=== PATIENT | male | born 1940 | race Caucasian/White ===

== ENCOUNTER → 2016-10-16 | Outpatient (CLI) | payer MEDICARE, BC ==
[~2016-10-16] MED LIST: CARDIZEM CD 18180 MG PO; CARDIZEM CD 24240 MG PO; COLACE 100100 MG/CAP PO; DULCOLAX TAB5 MG PO; FLEXERIL5 MG PO; GLUCOPHAGE XR500 M1 PO; GLUCOTROL 5M5 MG/TAB PO; LOPRESSOR100 MG PO; METFORMIN; METHYLTREXATE; PERCOCET 5/321 UDTAB PO; PREDNISONE20 MG PO; PRINIVIL20 MG PO; VICODIN 5/5001 UDTAB PO; XARELTO10 MG PO; XARELTO15 MG PO; XARELTO20 MG PO
== END ==
LOC: COL.RAD 09:19
DX: N40.0 Benign prostatic hyperplasia without lower urinary tract symptoms (principal); R97.20 Elevated prostate specific antigen [PSA]; K44.9 Diaphragmatic hernia without obstruction or gangrene; M19.011 Primary osteoarthritis, right shoulder; E04.2 Nontoxic multinodular goiter; N28.1 Cyst of kidney, acquired; N20.0 Calculus of kidney; Z85.46 Personal history of malignant neoplasm of prostate
CPT/HCPCS: A9503

== ENCOUNTER 2018-03-17 20:16 | Emergency (ER) | payer MEDICARE, BC ==
[~2018-03-17] VITALS: Ht 180.3 cm; Wt 90.9 kg
[2018-03-17 20:23] VITALS: BP 129/77; TEMP 99.1
[2018-03-17 21:53] LABS: COLLECTION METHOD CLEAN CATCH
[2018-03-17 21:59] LABS: HYALINE CAST >12 /lpf; MUCOUS Present /lpf; PH 6 (5-8); SQUAMOUS EPITHELIAL None Seen /hpf; URINE APPEARANCE Clear; URINE BACTERIA None Seen /hpf; URINE BILIRUBIN Negative (NEGATIVE); URINE BLOOD Negative (NEGATIVE); URINE COLOR Yellow; URINE GLUCOSE Negative (NEGATIVE); URINE KETONE Negative (NEGATIVE); URINE LEUKOCYTE ESTERASE Trace (NEGATIVE); URINE NITRATE Negative (NEGATIVE); URINE PROTEIN(semi-quant) 2+ (NEGATIVE); URINE RBC 0-2 /hpf; URINE UROBILINOGEN >=4.0 mg/dL (NEGATIVE)
[2018-03-17 22:19] LABS: BASO % 0.3 % (0.0-2.0); EOS # 0.1 (0.0-0.7); EOS % 0.4 % (0-4.0); GRAN # 9.1 (1.4-6.5); GRAN % 79.8 % (42.2-75.2); HEMATOCRIT 43.2 % (42.0-52.0); HEMOGLOBIN 14.3 g/dl (13.5-18.0); LYMPH # 1.2 (1.2-3.4); LYMPH % 10.1 % (20.0-51.0); MEAN CELL VOLUME 95 fl (80.0-100.0); MEAN CORPUSCULAR HEMOGLOBIN 32 pg (27.0-31.0); MEAN CORPUSCULAR HGB CONC 33 g/dl (33.0-37.0); MONO % 8.9 % (1.7-9.3); PLATELET COUNT 268 K/mm3 (130-400); RED BLOOD COUNT 4.53 M/mm3 (4.20-5.60); REDCELL DISTRIBUTION WIDTH-CV 14.5 % (11.5-14.5)
[2018-03-17 22:24] LABS: INR 1.6 (0.8-3.0); PROTHROMBIN TIME 18.5 SECONDS (9.7-12.8)
[2018-03-17 22:27] LABS: PARTIAL THROMBOPLASTIN TIME 42.1 SECONDS (26.0-37.0)
[2018-03-17 22:29] LABS: ALBUMIN 3.9 gm/dL (3.5-5.0); BILIRUBIN,TOTAL 1.4 mg/dL (0.0-1.0); CREATININE, serum 1.49 mg/dL (0.66-1.25); POTASSIUM 3.8 mmol/L (3.4-5.0); TOTAL PROTEIN 6.9 gm/dL (6.4-8.2)
[2018-03-18 01:20] VITALS: PULSE 93
== END 2018-03-18 01:25 | disposition short-term general hospital (02) ==
LOC: COL.ER 20:16
PROVIDERS: Emergency Medicine
DX: S22.41XA Multiple fractures of ribs, right side, initial encounter for closed fracture (principal); I48.91 Unspecified atrial fibrillation; S36.113A Laceration of liver, unspecified degree, initial encounter; J94.2 Hemothorax; Z79.84 Long term (current) use of oral hypoglycemic drugs; Z79.01 Long term (current) use of anticoagulants; V84.9XXA Unspecified occupant of special agricultural vehicle injured in nontraffic accident, initial encounter; W22.8XXA Striking against or struck by other objects, initial encounter; Y92.009 Unspecified place in unspecified non-institutional (private) residence as the place of occurrence of the external cause
CPT/HCPCS: J2270; J2405; J3010; J7030; Q9967

== ENCOUNTER 2018-05-22 07:51 | Day surgery (SDC) | payer MEDICARE, BC ==
[2018-05-22] VITALS (9 sets, daily range): BP systolic 136–163; BP diastolic 79–106; PULSE 67–86; TEMP 97.4–97.7
[~2018-05-22] VITALS: Ht 180.3 cm; Wt 90.0 kg
[2018-05-22 08:44] LABS: INR 1.9 (0.8-3.0); PROTHROMBIN TIME 22.1 SECONDS (9.7-12.8)
[2018-05-22] MEDS ORDERED: CARDIZEM 60MG T60 MG PO (08:59)
[2018-05-22] MEDS ORDERED: TRULICITY1.5 MG/0.5 SQ (09:03)
[2018-05-22] MEDS ORDERED: HCTZ 25MG TAB25 MG PO (09:04)
[2018-05-22] MEDS ORDERED: XALATAN EYE DROPS OU (09:05)
[2018-05-22] MEDS ORDERED: COZAAR 50MG50 MG/TAB PO (09:06)
[2018-05-22] MEDS ORDERED: ACTOS30 MG PO (09:07)
[2018-05-22] MEDS ORDERED: BETAPACE 80MG80 MG PO (09:09)
[2018-05-22] MEDS ORDERED: DEPO-TESTOS100 MG/ML IM (09:11)
[2018-05-22 09:26] LABS: THYROID STIMULATING HORMONE 2.08 uIU/mL (0.465-4.680)
[2018-05-22 09:47] LABS: POTASSIUM 3.7 mmol/L (3.4-5.0)
== END 2018-05-22 14:00 | disposition home or self-care (01) ==
LOC: COL.CAR 07:51
PROVIDERS: Internal Medicine Cardiovascular Disease
DX: I48.0 Paroxysmal atrial fibrillation (principal); I10 Essential (primary) hypertension; E78.5 Hyperlipidemia, unspecified; E83.42 Hypomagnesemia; B36.9 Superficial mycosis, unspecified; E23.0 Hypopituitarism; I08.1 Rheumatic disorders of both mitral and tricuspid valves; Z79.01 Long term (current) use of anticoagulants; Z85.46 Personal history of malignant neoplasm of prostate; Z87.81 Personal history of (healed) traumatic fracture; Z82.49 Family history of ischemic heart disease and other diseases of the circulatory system; Z80.3 Family history of malignant neoplasm of breast
CPT/HCPCS: J2250; J3010; J7030

== ENCOUNTER 2018-10-14 10:30 | Inpatient (IN) | payer MEDICARE, BC ==
[~2018-10-14] VITALS: Ht 180.3 cm; Wt 89.5 kg
[~2018-10-14 10:30] MED LIST changes: +ACTOS30 MG PO; +BETAPACE 80MG80 MG PO; +CARDIZEM 60MG T60 MG PO; +COZAAR 50MG50 MG/TAB PO; +DEPO-TESTOS100 MG/ML IM; +HCTZ 25MG TAB25 MG PO; +TRULICITY1.5 MG/0.5 SQ; +XALATAN EYE DROPS OU
[2018-10-14 11:10] LABS: HEMATOCRIT 48.9 % (42.0-52.0); HEMOGLOBIN 16.6 g/dl (13.5-18.0); MEAN CELL VOLUME 92 fl (80.0-100.0); MEAN CORPUSCULAR HEMOGLOBIN 31 pg (27.0-31.0); MEAN CORPUSCULAR HGB CONC 34 g/dl (33.0-37.0); PLATELET COUNT 206 K/mm3 (130-400); REDCELL DISTRIBUTION WIDTH-CV 14.4 % (11.5-14.5)
[2018-10-14 11:23] LABS: ALBUMIN 4.2 gm/dL (3.5-5.0); BILIRUBIN,TOTAL 2.6 mg/dL (0.0-1.0); C-REACTIVE PROTEIN 2.9 mg/dL (0.0-0.9); CALCIUM 9.1 mg/dL (8.4-10.2); CREATININE, serum 1.22 mg/dL (0.66-1.25); POTASSIUM 4.1 mmol/L (3.4-5.0); TOTAL PROTEIN 7.9 gm/dL (6.4-8.2)
[2018-10-14 11:27] LABS: LYMPHOCYTE 3 % (20.0-51.0); NEUTROPHILS 92 % (42.0-75.2); PLATELET ESTIMATE NORMAL (NORMAL)
[2018-10-14 12:14] LABS: INR 1.2 (0.8-3.0); PROTHROMBIN TIME 13.9 SECONDS (9.7-12.8)
[2018-10-14 13:18] LABS: SYNOVIAL FL. MONONUCLEAR 10.2 % (0-75); SYNOVIAL FLUID RBC 128000 /mm3 (0-0); SYNOVIAL FLUID WBC 221490 /mm3 (200-600)
[2018-10-14 13:41] LABS: SYNOVIAL FLUID APPEARANCE TURBID; SYNOVIAL FLUID COLOR BROWN
--- NOTE | 2018-10-14 14:45 | NUR ---
PATIENT ARRIVED TO ROOM 349 VIA WHEELCHAIR FROM ER. PATIENT SETTELED INTO ROOM.
[2018-10-14 15:11] VITALS: BP 141/82; PULSE 97; TEMP 98.1
[2018-10-14 15:30] VITALS: BP 141/82; PULSE 97; TEMP 98.1
--- NOTE | 2018-10-14 17:07 | NUR ---
PATIENT ASSESSMENT COMPLETE. SEE ASSESSMENT B. PATIENT A&O. VSS. BANDAID TO LEFT KNEE IS CD&I. BJ FRENCH AND SCD'S APPLIED TO BLE. CALL LIGHT WITHIN REACH. PATIENT DENIES ANY NEEDS AT THIS TIME.
[2018-10-14 18:19] LABS: PH 5 (5-8); SQUAMOUS EPITHELIAL None Seen /hpf; URINE APPEARANCE Clear; URINE BACTERIA None Seen /hpf; URINE BILIRUBIN Negative (NEGATIVE); URINE BLOOD 1+ (NEGATIVE); URINE COLOR Yellow; URINE GLUCOSE 3+ (NEGATIVE); URINE KETONE Trace (NEGATIVE); URINE LEUKOCYTE ESTERASE Negative (NEGATIVE); URINE NITRATE Negative (NEGATIVE); URINE PROTEIN(semi-quant) Negative (NEGATIVE); URINE RBC 0-2 /hpf; URINE WBC 0-2 /hpf
[2018-10-14 18:37] LABS: COLLECTION METHOD CLEAN CATCH
--- NOTE | 2018-10-14 19:17 | NUR ---
REPORT GIVEN TO CONNOR DIA.
[2018-10-14 20:42] VITALS: BP 140/83; PULSE 78; TEMP 98.2
--- NOTE | 2018-10-14 21:00 | NUR ---
Patient resting in bed, eyes closed. Awakens to name. Is alert and oriented x4. Has SL to right AC without redness or swelling. Has bilateral thigh high BJ hose on with SCD's bilaterally. Has swelling to left knee, bandaid intact to puncture site. Denies pain at this time. Takes HS meds without problem.
[2018-10-15 03:44] VITALS: BP 122/70; PULSE 91; TEMP 98.6
--- NOTE | 2018-10-15 05:00 | NUR ---
Assisted up in the bed, moderate discomfort. Elevated leg and applied new ice pack this AM. Uses urinal without problem.
[2018-10-15 07:50] VITALS: BP 156/69; PULSE 92; TEMP 97.8
--- NOTE | 2018-10-15 09:01 | NUR ---
CARMEN and SW student attended clinical rounds and met with the patient to discuss discharge plan. The patient [place] alone [place] of the [facility]. He reports that his brother lives in a house close by. The patient does not use any DME and reports independence with ADLs prior to hospitalization. The patient's PCP is Dr. Benoit Nguyen and he receives his medications at the [facility] in [place] or the [facility] [place], [place]. The patient reports no difficulties obtaining his medications. The patient does not have a DPOA-HC completed and was not interested in completing one at this time. CARMEN to continue to follow.
[2018-10-15 09:09] LABS: HEMATOCRIT 44.5 % (42.0-52.0); HEMOGLOBIN 15.1 g/dl (13.5-18.0); MEAN CELL VOLUME 93 fl (80.0-100.0); MEAN CORPUSCULAR HEMOGLOBIN 31 pg (27.0-31.0); MEAN CORPUSCULAR HGB CONC 34 g/dl (33.0-37.0); MEAN PLATELET VOLUME 9.1 fl (7.4-10.4); PLATELET COUNT 165 K/mm3 (130-400); RED BLOOD COUNT 4.81 M/mm3 (4.20-5.60); REDCELL DISTRIBUTION WIDTH-CV 14.7 % (11.5-14.5)
[2018-10-15 09:11] LABS: CALCIUM 8.6 mg/dL (8.4-10.2); CREATININE, serum 1.17 mg/dL (0.66-1.25); POTASSIUM 3.5 mmol/L (3.4-5.0)
[2018-10-15 09:24] LABS: BAND 17 % (0-10); NEUTROPHILS 67 % (42.0-75.2)
[2018-10-15 09:25] LABS: LYMPHOCYTE 10 % (20.0-51.0); PLATELET ESTIMATE NORMAL (NORMAL)
--- NOTE | 2018-10-15 10:29 | NUR ---
Initial visit; Patient thanked Irrigator Gravity Flow for offering God's blessings.
--- NOTE | 2018-10-15 10:54 | NUR ---
Patient alert and oriented, answers questions appropriately. See assessment. LLE with 1+ edema noted, pulses palpable, no numbness or tingling noted. Pain to LLE with movement or weight bearing, ice pack in place. No other c/o at this time.
[2018-10-15 11:53] VITALS: BP 123/63; PULSE 81; TEMP 98.2
[2018-10-15 16:27] VITALS: BP 178/81; PULSE 95; TEMP 99.4
--- NOTE | 2018-10-15 19:24 | NUR ---
Patient in bed, asks for pain med. Medicated with [place] 5/325mg 1 tab po at this time. Has ice pack to left knee. Minimal activity noted. SCD's and thigh high BJ hose on. Voiding per urinal. IV site to right AC without redness or swelling.
--- NOTE | 2018-10-15 21:20 | NUR ---
Patient in bed, has minimal movement in bed since previous night. Assisted patient with partial bath, linen change and repositioning. Stressed importance of moving to prevent skin breakdown, patient verbalized understanding. Laying on left side, IV antibiotic infusing without problem.
--- NOTE | 2018-10-15 23:39 | NUR ---
Patient repositioned to back, moderate pain with movement, rating 7/10 to left knee. Medicated with [place] 5/325mg 2 tabs at this time. Ice pack and elevation of left leg provided. Patient brushed his teeth at this time.
--- NOTE | 2018-10-16 00:05 | NUR ---
Limiting oral intake until decision made if he is having I/D of left knee today. Patient verbalized understanding.
[2018-10-16 03:31] VITALS: BP 136/78; PULSE 81; TEMP 98.5
--- NOTE | 2018-10-16 06:00 | NUR ---
Dr Davila here, ordered PT for patient. No surgery and patient can eat as normal.
[2018-10-16 07:48] LABS: BASO % 0.2 % (0.0-2.0); EOS % 0.2 % (0-4.0); GRAN # 12.4 (1.4-6.5); HEMATOCRIT 43.6 % (42.0-52.0); HEMOGLOBIN 14.3 g/dl (13.5-18.0); LYMPH % 6.6 % (20.0-51.0); MEAN CELL VOLUME 94 fl (80.0-100.0); MEAN CORPUSCULAR HEMOGLOBIN 31 pg (27.0-31.0); MEAN CORPUSCULAR HGB CONC 33 g/dl (33.0-37.0); MEAN PLATELET VOLUME 9.4 fl (7.4-10.4); MONO # 1.3 (0.1-0.6); MONO % 8.5 % (1.7-9.3); PLATELET COUNT 194 K/mm3 (130-400); RED BLOOD COUNT 4.64 M/mm3 (4.20-5.60); REDCELL DISTRIBUTION WIDTH-CV 14.7 % (11.5-14.5)
[2018-10-16 08:00] VITALS: BP 138/71; PULSE 86; TEMP 98.6
[2018-10-16 08:01] LABS: CALCIUM 8.5 mg/dL (8.4-10.2); CREATININE, serum 1.21 mg/dL (0.66-1.25); POTASSIUM 3.5 mmol/L (3.4-5.0)
[2018-10-16 08:36] LABS: C-REACTIVE PROTEIN 33.4 mg/dL (0.0-0.9)
[2018-10-16 09:18] LABS: ERYTHROCYTE SEDIMENTATION RATE 54 mm/hr (0-30)
--- NOTE | 2018-10-16 11:21 | NUR ---
Pt. is currently sitting in his chair receiving Vancomycin IV. IV is located in right forearm. No redness/infiltration noted. Resident rated pain at a 3 while sitting and a 10 when standing while he moved to chair earlier. Currently has ice on his left knee, and a [place] was given at 1055. Will get him up later to walk, call light and water within reach.
[2018-10-16 12:00] VITALS: BP 140/60; PULSE 74; TEMP 99.4
--- NOTE | 2018-10-16 13:45 | NUR ---
Pt. sitting in chair watching tv. just finished lunch. Denies left knee pain at this time. Call light and water within reach.
--- NOTE | 2018-10-16 14:50 | NUR ---
Patient alert and oriented, answers questions appropriately. See assessment. LLE ROM WNL, pulses palpable, neuros intact. No c/o numbness or tingling to LLE. FWB. No c/o at this time.
--- NOTE | 2018-10-16 15:06 | NUR ---
CARMEN and CARMEN student met with the patient to discuss physical therapies recommendation of post-acute rehab and the need for IV antibiotics. The patient reports that he would be agreeable to post-acute rehab. CARMEN discussed options and presented and explained the patient choice form. The patient preferred either [facility] or [facility]. He did not have a first or second preference at this time. Patient choice form signed by the patient and he was provided a copy. CARMEN has contacted and faxed a referral to both facilities. CARMEN awaiting their screening. The patient also informed CARMEN that he has [facility] as a secondary, but does not have his insurance card on him. He states that his PCP's office should have that information. CARMEN then contacted Dr. Nguyen's office and obtained his insurance number. CARMEN then provided the information to financial counselor, Arleth. CARMEN to continue to follow.
[2018-10-16 16:00] VITALS: BP 120/61; PULSE 84; TEMP 99.6
--- NOTE | 2018-10-16 16:37 | NUR ---
Liliana, at [facility], reports that they can accept the patient for a skilled stay. SW to inform the patient and continue to follow.
[2018-10-16 19:06] VITALS: BP 152/71; PULSE 80; TEMP 99.2
--- NOTE | 2018-10-16 21:30 | NUR ---
Patient in bed, is alert and oriented x4. Has SL to right AC without redness or swelling. Still reporting significant pain to left knee with movement of the left leg. Assisted with oral cares. Voiding per urinal.
--- NOTE | 2018-10-16 22:30 | NUR ---
Lab in to draw blood cultures at this time, new order from ID doctor.
--- NOTE | 2018-10-17 00:19 | NUR ---
Medicated with [place] 5/325mg 2 tabs p.o. at this time for left knee pain 03/04.
[2018-10-17 00:23] VITALS: BP 127/59; PULSE 80; TEMP 98.8
[2018-10-17 05:30] VITALS: BP 123/65; PULSE 71; TEMP 98.9
[2018-10-17 05:31] LABS: HEMATOCRIT 40.5 % (42.0-52.0); HEMOGLOBIN 13.5 g/dl (13.5-18.0); MEAN CELL VOLUME 93 fl (80.0-100.0); MEAN CORPUSCULAR HEMOGLOBIN 31 pg (27.0-31.0); MEAN CORPUSCULAR HGB CONC 33 g/dl (33.0-37.0); MEAN PLATELET VOLUME 9.5 fl (7.4-10.4); PLATELET COUNT 215 K/mm3 (130-400); RED BLOOD COUNT 4.36 M/mm3 (4.20-5.60); REDCELL DISTRIBUTION WIDTH-CV 14.6 % (11.5-14.5)
[2018-10-17 05:40] LABS: CALCIUM 8.7 mg/dL (8.4-10.2); CREATININE, serum 1.43 mg/dL (0.66-1.25); POTASSIUM 3.5 mmol/L (3.4-5.0)
--- NOTE | 2018-10-17 06:00 | NUR ---
Patient awake, denies need for pain meds at this time.
[2018-10-17 06:44] LABS: BASO % 0.2 % (0.0-2.0); EOS # 0.1 (0.0-0.7); EOS % 0.6 % (0-4.0); GRAN # 9.9 (1.4-6.5); LYMPH # 1.3 (1.2-3.4); LYMPH % 10.3 % (20.0-51.0); MONO # 1.2 (0.1-0.6); MONO % 9.3 % (1.7-9.3)
--- NOTE | 2018-10-17 07:15 | NUR ---
Report received from CONNOR Story. Pt in bed resting, awake and alert, student nurse at bedside, will continue to monitor.
[2018-10-17 08:00] VITALS: BP 127/75; PULSE 72; TEMP 98.1
--- NOTE | 2018-10-17 09:42 | NUR ---
CARMEN and SW student met with the patient to inform of [facility] being able to accept. The patient reports that [facility] is his first preference now and that he would like to transfer there upon discharge. SW updated Liliana at [facility]. SW to update Pan at [facility] and continue to follow.
--- NOTE | 2018-10-17 09:55 | NUR ---
Assessment charted. Pt in bed resting, c/o pain to L knee whenever palpated or moved but at rest denies pain. Knee is warm and reddened and slightly swollen compared to other knee. Denies needs, student nurse at bedside. Called IAME Giles for hospitalist and PICC will probably be placed Saturday when blood culture have resulted, pt will remain in hospital until that time.
--- NOTE | 2018-10-17 09:57 | NUR ---
Resident is currently resting in bed, denies any pain at this time. His left knee becomes painful with movement and ambulation. Does have slight swelling in the left knee. Vitals and Assessment done earlier this morning. Call light and water are within reach.
[2018-10-17 12:00] VITALS: BP 108/54; PULSE 57; TEMP 98.9
--- NOTE | 2018-10-17 13:03 | NUR ---
Initial visit; Patient thanked Manager Qa for looking in on him and offering God's blessings. Jose is still experiencing some pain but is in hopes with physical therapy it will feel better today.
--- NOTE | 2018-10-17 13:24 | NUR ---
CARMEN contacted and faxed updates to Liliana at [facility]. SW to continue to follow.
--- NOTE | 2018-10-17 13:49 | NUR ---
Pt. ate well for lunch and then got up to ambulate. Pt. just received a shower and was shaved. New gown and socks were put on along with new bedding. Pt. has pain with ambulation but when at rest he says it feels okay. Water and call light within reach.
[2018-10-17 15:23] VITALS: BP 131/61; PULSE 76; TEMP 99.1
--- NOTE | 2018-10-17 18:14 | NUR ---
Pt doing well. Feels good but tired after walking to shower, taking shower and back in bed. Rested well this afternoon. Changed IV site due to outdated. Denies needs. Will give bedside shift erport to nighthsift nurse who will resume care.
[2018-10-17 20:26] VITALS: BP 128/63; PULSE 112; TEMP 99.8
--- NOTE | 2018-10-17 21:45 | NUR ---
Shift assessment complete. Patient resting in bed, left knee elevated. Patient c/o 4/10 pain in left knee, prn pain medication given. SCD's applied to BLE. Denies further needs, will continue to assess.
[2018-10-18] VITALS (8 sets, daily range): BP systolic 109–157; BP diastolic 55–93; PULSE 42–122; TEMP 98.1–99.9
--- NOTE | 2018-10-18 04:31 | NUR ---
Patient resting in bed. C/o pain in left knee. Prn pain medication given. Will reassess.
[2018-10-18 07:19] LABS: BASO % 0.3 % (0.0-2.0); EOS # 0.1 (0.0-0.7); EOS % 0.6 % (0-4.0); GRAN # 8.5 (1.4-6.5); HEMATOCRIT 39.5 % (42.0-52.0); LYMPH # 1.2 (1.2-3.4); LYMPH % 10.7 % (20.0-51.0); MEAN CELL VOLUME 94 fl (80.0-100.0); MEAN CORPUSCULAR HEMOGLOBIN 31 pg (27.0-31.0); MEAN CORPUSCULAR HGB CONC 33 g/dl (33.0-37.0); MEAN PLATELET VOLUME 9.2 fl (7.4-10.4); MONO # 1.4 (0.1-0.6); MONO % 12.3 % (1.7-9.3); PLATELET COUNT 233 K/mm3 (130-400); REDCELL DISTRIBUTION WIDTH-CV 14.6 % (11.5-14.5)
[2018-10-18 07:27] LABS: CALCIUM 8.7 mg/dL (8.4-10.2); CREATININE, serum 1.33 mg/dL (0.66-1.25); POTASSIUM 3.7 mmol/L (3.4-5.0)
--- NOTE | 2018-10-18 13:34 | NUR ---
CARMEN faxed a patient updated to Liliana at [facility].
--- NOTE | 2018-10-18 18:45 | NUR ---
Left knee pain improved with prn [place]. CMS intact. Transfers with walker and two staff assist. Afebrile. Complained of increased knee pain after physical therapy. Informed NPO after midnight.
[2018-10-19] VITALS (13 sets, daily range): BP systolic 124–182; BP diastolic 58–93; PULSE 68–86; TEMP 97.9–99
--- NOTE | 2018-10-19 04:56 | NUR ---
Patient has rested well overnight. Patient did complain of pain in his left knee at the beginning of the shift, administered PRN pain medication per order. Left knee is edemetous upon inspection. Patient had a slightly elevated temprature at HS, but reports that the pain medication did help his knee. Patient has continued to deny pain or further needs overnight, call light within reach.
--- NOTE | 2018-10-19 10:15 | NUR ---
Dr. Damon talked with patient and daughter. NPO. Rates left knee pain as 3/10 at rest. To surgery per bed with OR staff.
--- NOTE | 2018-10-19 12:20 | NUR ---
Received patient from PACU per bed. Alert. Left knee dressing CDI. Hemovac to compression with minimal bloody drainage in tubing. Denies need for pain medication. VSS.
--- NOTE | 2018-10-19 14:10 | NUR ---
plate worker spoke with Liliana at [facility] regarding no orders for the patient to discharge this day and social welfare clerk faxed medical information updates to Liliana at [phone].
--- NOTE | 2018-10-19 15:00 | NUR ---
Medicated with [place] for c/o left knee pain.
--- NOTE | 2018-10-19 18:30 | NUR ---
Denied pain. Left knee dressing CDI. No measurable drainage in hemovac. Ice pack to knee. VSS.
--- NOTE | 2018-10-19 19:36 | NUR ---
Pt resting with HOB elevated. No distress noted. Report received from Almaz RYAN. IV fluids infusing to LFA. Hemovac to L knee compressed. Some bloody drainage in tubing, but none in chamber. Pt states pain isn't "that bad". States it is much better since the procedure. Lungs clear to auscultation. BS+. BJ hose to L leg. Will continue to monitor.
--- NOTE | 2018-10-19 21:00 | NUR ---
[employer] contacted about pts elevated CBG >400. No orders received.
[2018-10-20 03:23] VITALS: BP 132/66; PULSE 67; TEMP 98.4
--- NOTE | 2018-10-20 06:15 | NUR ---
Pt awake this AM, but slept throughout the night. No complaints of pain currently. No drainage noted in Hemovac canister. Hot water x2 brought to patient. Pt has still not had BM, but states he "wants to try today".
[2018-10-20 07:08] LABS: HEMATOCRIT 39.3 % (42.0-52.0); HEMOGLOBIN 12.8 g/dl (13.5-18.0); MEAN CELL VOLUME 95 fl (80.0-100.0); MEAN CORPUSCULAR HEMOGLOBIN 31 pg (27.0-31.0); MEAN CORPUSCULAR HGB CONC 33 g/dl (33.0-37.0); MEAN PLATELET VOLUME 9.6 fl (7.4-10.4); RED BLOOD COUNT 4.14 M/mm3 (4.20-5.60); REDCELL DISTRIBUTION WIDTH-CV 14.5 % (11.5-14.5)
[2018-10-20 07:18] LABS: CREATININE, serum 1.23 mg/dL (0.66-1.25); POTASSIUM 4.5 mmol/L (3.4-5.0)
[2018-10-20 07:24] LABS: PLATELET COUNT 340 K/mm3 (130-400)
[2018-10-20 07:26] VITALS: BP 128/64; PULSE 73; TEMP 98.8
[2018-10-20 11:13] LABS: BAND 4 % (0-10); LYMPHOCYTE 7 % (20.0-51.0); METAMYELOCYTE 1 % (0-0); NEUTROPHILS 81 % (42.0-75.2)
[2018-10-20 11:14] LABS: PLATELET ESTIMATE NORMAL (NORMAL)
--- NOTE | 2018-10-20 11:16 | NUR ---
Patient alert and oriented, answers questions appropriately. See assessment. LLE with AMANDA/dressing clean, dry and intact. Pulses palpable to LLE, neuros intact. FWB BLE. No c/o at this time.
[2018-10-20 12:46] VITALS: BP 150/68; PULSE 73; TEMP 98.7
[2018-10-20 15:59] VITALS: BP 124/56; PULSE 74; TEMP 98.7
[2018-10-20 20:45] VITALS: BP 122/56; PULSE 72; TEMP 98.6
--- NOTE | 2018-10-20 21:30 | NUR ---
Patient laying in bed. Reports pain to left knee continues, describes as a constant aching. Has surgical dressing including fabiola wrap from thigh to foot on the left, hemovac compressed. Patient offers his concerns of not getting better and thinks he may want to go to [facility] in [place]. Encouraged patient to talk with his doctors in the morning about his concerns. SCD's on bilateral lower legs. Elevated left leg on a pillow, pt does not want the ice pack on. Has a PICC line to the left arm. Takes HS meds, including stool softners, reports last BM was 10/19/18.
--- NOTE | 2018-10-20 23:45 | NUR ---
Patient complains of pain 8/10 to left knee, constant aching. Medicated with Lortab 7.5mg 2 tabs po at this time. Patient ready for bed.
[2018-10-21 00:24] VITALS: BP 132/66; PULSE 84; TEMP 98.5
--- NOTE | 2018-10-21 00:27 | NUR ---
Received report from CONNOR Story.
[2018-10-21 05:53] VITALS: BP 135/86; PULSE 75; TEMP 98.5
[2018-10-21 06:04] LABS: HEMOGLOBIN 11.5 g/dl (13.5-18.0); MEAN CELL VOLUME 94 fl (80.0-100.0); MEAN CORPUSCULAR HEMOGLOBIN 31 pg (27.0-31.0); MEAN CORPUSCULAR HGB CONC 32 g/dl (33.0-37.0); MEAN PLATELET VOLUME 9.3 fl (7.4-10.4); PLATELET COUNT 364 K/mm3 (130-400); RED BLOOD COUNT 3.76 M/mm3 (4.20-5.60); REDCELL DISTRIBUTION WIDTH-CV 14.6 % (11.5-14.5)
--- NOTE | 2018-10-21 06:05 | NUR ---
Patient has rested well through the night. VSS, on room air. [place] given for pain control. Christopher wrap dressing to left foot to thigh remains CDI. Hemovac to left knee with a total of 30 ml of bloody output this shift. PICC to left upper arm flushes well with good blood return, being used intermittently for antibiotics. Patient does voice frustration with being here a week already and he feels he's not getting any better. Encouraged to voice his concerns with the medical staff who will be rounding this morning. Voices no other concerns or needs.
[2018-10-21 06:06] LABS: HEMATOCRIT 35.5 % (42.0-52.0)
[2018-10-21 06:18] LABS: CALCIUM 8.1 mg/dL (8.4-10.2); CREATININE, serum 1.11 mg/dL (0.66-1.25); POTASSIUM 3.9 mmol/L (3.4-5.0)
--- NOTE | 2018-10-21 07:00 | NUR ---
Reported on to primary nurse Maryjo RYAN.
[2018-10-21 07:20] VITALS: BP 142/75; PULSE 76; TEMP 98.3
[2018-10-21 07:27] LABS: BAND 1 % (0-10); EOSINOPHIL 1 % (0-4); LYMPHOCYTE 16 % (20.0-51.0); NEUTROPHILS 72 % (42.0-75.2)
[2018-10-21 07:28] LABS: HYPOCHROMIA 1+
[2018-10-21 07:29] LABS: POLYCHROMASIA 1+
--- NOTE | 2018-10-21 07:30 | NUR ---
Patient alert in bed. Reports his knee has minimal pain at this time 10/05. Christopher wrap is on left leg. SCD's on bilateral lower legs. Hemovac intact, dark red drainage. PICC line in left upper arm, no redness above or below christopher bandage.
--- NOTE | 2018-10-21 08:17 | NUR ---
Patient resting in bed. Breakfast ordered. He is rating his pain 3/10. Pain managed after given pain medication this am by prior nurse. Patient reports pain to Left knee elevated with movement. He is dreading therapy this am. His Left knee dressing intact. Hemovac to compression. Breakfast ordered-he denies nausea. Student nurse working with patient this am. Will continue to [facility]
--- NOTE | 2018-10-21 09:33 | NUR ---
CARMEN attended clinical rounds. Patient isael likley discharge tomorrow. is waiting for ortho to clear patient. CARMEN informed Cesia at [facility] and will fax updates.
--- NOTE | 2018-10-21 10:32 | NUR ---
Patient sitting up in the chair. He worked with therapy & did fairly well. Dr.Hodges moya, he will see patient this afternoon.
[2018-10-21 11:34] VITALS: BP 132/77; PULSE 74; TEMP 98
--- NOTE | 2018-10-21 12:09 | NUR ---
Reported off to primary nurse Maryjo RYAN.
--- NOTE | 2018-10-21 13:09 | NUR ---
Patient resting in bed. rounded. Verified Xarelto to be resumed & orders to DC hemovac. Patient tolerated hemovac removal without difficulty. Gauze dressing applied. and bandaids applied to 2 other sites with sutures. Bj hose to LLE. Removed BJ hose from RLE. Scds Ble. Patient ready for [place] for increased pain to L.knee. Applesauce with pain medication, he is not ready for lunch at this time. Overall he reports feeling better than previous day. Elliot falcon.
--- NOTE | 2018-10-21 13:45 | NUR ---
Spoke to patients daughter all questions answered. Patient refused to work with therapy. He had a late lunch & tolerated well.
[2018-10-21] MEDS ORDERED: ULTRAM 50MG TAB50 MG PO (14:01)
[2018-10-21] MEDS ORDERED: NORCO 325 MG-7.1 TAB PO (14:01)
[2018-10-21 16:24] VITALS: BP 148/75; PULSE 69; TEMP 98.6
--- NOTE | 2018-10-21 19:30 | NUR ---
Patient sitting up in bed. Visiting on the phone. Iv antibioitcs as ordered to [facility] this afternoon. L.knee bandaids remain intact. Prior hemovac site gauze dressing with shadowing noted. Nicola on. Vss on room air. Report to night nurse Juju
--- NOTE | 2018-10-21 19:40 | NUR ---
Pt resting with HOB elevated. On phone with family member. Pt upset that the infectious disease doctor is unable to come see him in the hospital and expresses desire to leave in the AM and transfer to [facility] for care. Pt does not believe that his infection is improving. Lungs clear. BS+. Pt denies nausea or vomiting. Pt states pain is "excruitating" overall, but tolerable at this time. Requesting pain medication when he can have it. Bandiads x2 and guaze to L knee at hemovac removal site. Clean, dry and intact. BJ hose to L leg. SCDs bilaterally. Will continue to monitor.
[2018-10-21 19:47] VITALS: BP 153/79; PULSE 77; TEMP 98.3
[2018-10-22 00:05] VITALS: BP 134/76; PULSE 66; TEMP 98.7
[2018-10-22 03:49] VITALS: BP 156/78; PULSE 75; TEMP 98.2
--- NOTE | 2018-10-22 07:00 | NUR ---
Report given to Lizbet RYAN. Pt continues to express request to tx to [facility]. Pt rested throughout the night. Pain well controlled.
[2018-10-22 07:20] LABS: HEMOGLOBIN 11.7 g/dl (13.5-18.0); MEAN CELL VOLUME 95 fl (80.0-100.0); MEAN CORPUSCULAR HEMOGLOBIN 30 pg (27.0-31.0); MEAN CORPUSCULAR HGB CONC 32 g/dl (33.0-37.0); MEAN PLATELET VOLUME 9.1 fl (7.4-10.4); PLATELET COUNT 396 K/mm3 (130-400); RED BLOOD COUNT 3.86 M/mm3 (4.20-5.60); REDCELL DISTRIBUTION WIDTH-CV 14.6 % (11.5-14.5)
[2018-10-22 07:24] LABS: HEMATOCRIT 36.8 % (42.0-52.0)
[2018-10-22 07:32] LABS: CREATININE, serum 1.03 mg/dL (0.66-1.25); POTASSIUM 4.1 mmol/L (3.4-5.0)
[2018-10-22 07:54] VITALS: BP 154/82; PULSE 82; TEMP 98.5
[2018-10-22 08:36] LABS: BAND 5 % (0-10); EOSINOPHIL 4 % (0-4); LYMPHOCYTE 26 % (20.0-51.0); METAMYELOCYTE 1 % (0-0); NEUTROPHILS 58 % (42.0-75.2)
[2018-10-22 08:37] LABS: PLATELET ESTIMATE NORMAL (NORMAL)
--- NOTE | 2018-10-22 10:00 | NUR ---
SW attended clinical rounds. Patient reports a lot of pain when working with PT. Patient will likley discharge to [facility] tomorrow.
--- NOTE | 2018-10-22 10:15 | NUR ---
Patient alert and oriented, answers questions appropriately. See assessment. LLE with 1+ edema noted to knee, previous drain site with no issues noted. LLE pulses palpable, neuros intact. No redness or extra warmth noted to LLE knee. Reports pain 1/10 to LLE, states increases with movement and weight bearing. AROM to LLE with no visible signs of pain noted. Patient states he would like to transfer to [facility] or [facility]. Explained to patient that there is a possibility neither [facility] or [facility] would accept transfer as patients condition is improving. Patient adamant that he be transferred to [facility] as he feels the ID doctor at is not appropriate because he has never been here to see him. Explained to patient that ID doctor is updated daily and has access to all records. Patient continues to be adamant about transfer. Dr Gauthier notified of patient concerns.
--- NOTE | 2018-10-22 10:35 | NUR ---
Dr Gauthier here to see patient.
--- NOTE | 2018-10-22 11:30 | NUR ---
Patient refuses PT per TONE REGULATOR report. Inquired from patient as to why he refuses therapy. Patients brother present in room. Patient states "I'm not doing therapy until I get a second opinion at [facility]." Reinterated to patient Dr Carmen' conversation with patient this morning about the likelihood of a higher level of care hospital accepting patient. Patients brother becomes irate and moves toward staff, stating "He needs a first opinion. Not a second opinion. That ID doctor here is not a first opinion because he's never seen him." Explained to patient and brother that the ID doctor has access to the records, speaks to the staff daily, and is well aware of all patient issues. Patients brother continues to speak loudly of need for a "real" ID doctor to see patient. States "He will have to have an amputation if you don't send him to where there is an ID doctor available to see him." Inquired to patient what he would want to happen if [facility] refuses transfer. Patient states "I will just stay here in this hospital then". Requested to patient to participate in therapy, refuses again stating "I won't do therapy until I get to [facility]". Patients brother continues to be adamant that patients ID doctor is not adequate and that patient "will be transferred to [facility] before his leg has to be amputated". Patients brother appears to be becoming more aggressive and was told that would be notified of his concerns. Informed practical nursing teacher and CNAs to exit room along with this nurse.
[2018-10-22 11:44] VITALS: BP 153/88; PULSE 85; TEMP 98.7
[2018-10-22 16:24] VITALS: BP 146/68; PULSE 76; TEMP 99.1
[2018-10-22 21:00] VITALS: BP 156/82; PULSE 82; TEMP 98.7
--- NOTE | 2018-10-22 21:11 | NUR ---
PT IN BED WITH HOB ELEVATED AT 45 DEGREE ANGLE. PT ADVISES THAT HE IS NOT IN PAIN NOW BECAUSE HE IS LAYING STILL, BUT WHEN HE HAS TO MOVE THEN HE HAS GREAT PAIN THAT CAUSES HIM TO FEEL NAUSEAD. PT ADVISED THAT ALSO HE IS AFRAID OF HAVING TO MOVE TOMORROW WITH PT/OT. PT HAS NO NEED AT THIS TIME. CALL LIGHT WITHIN REACH.
[2018-10-23 00:18] VITALS: BP 146/74; PULSE 84; TEMP 97.7
--- NOTE | 2018-10-23 02:11 | NUR ---
PT WAS ASSISTED TO BATHROOM AROUND 0000 THIS NIGHT. PT WAS ASSISTED X2, AND USED WALKER TO AMBULATED. PT WALKED TO AND FROM BATHROOM. PT HAD C/O SEVERE PAIN, AND HE BECAME DIAPHORETIC. PAIN MEDICATION WAS GIVEN TO PT. PT IS CURRENTLY SLEEPING/RESTING WITH NO S/S OF PAIN OR DISCOMFORT AND RESP EVEN AND UNLABORED. CALL LIGHT WITHIN REACH.
[2018-10-23 04:30] VITALS: BP 160/80; PULSE 82; TEMP 99
--- NOTE | 2018-10-23 13:26 | NUR ---
CARMEN informed that patient will discharge today to [facility]. CARMEN presented IM to patient. He signed and was provided a copy. CARMEN faxed discharge orders and arranged transportation.
[2018-10-24 15:07] LABS: HEMATOCRIT 38.5 % (42.0-52.0); HEMOGLOBIN 12.5 g/dl (13.5-18.0); MEAN CELL VOLUME 94 fl (80.0-100.0); MEAN CORPUSCULAR HEMOGLOBIN 30 pg (27.0-31.0); MEAN CORPUSCULAR HGB CONC 33 g/dl (33.0-37.0); MEAN PLATELET VOLUME 8.7 fl (7.4-10.4); PLATELET COUNT 456 K/mm3 (130-400); RED BLOOD COUNT 4.11 M/mm3 (4.20-5.60); REDCELL DISTRIBUTION WIDTH-CV 14.5 % (11.5-14.5)
[2018-10-24 15:08] LABS: BAND 3 % (0-10); EOSINOPHIL 2 % (0-4); LYMPHOCYTE 11 % (20.0-51.0); NEUTROPHILS 82 % (42.0-75.2); PLATELET ESTIMATE INCREASED (NORMAL)
[2018-10-24 15:28] LABS: CALCIUM 8.2 mg/dL (8.4-10.2); CREATININE, serum 1.07 mg/dL (0.66-1.25); POTASSIUM 3.9 mmol/L (3.4-5.0)
== END 2018-10-23 15:00 | DRG 486 ==
LOC: COL.ER 10:30 → SURG 12:49
PROVIDERS: Emergency Medicine; Hospitalist; Nurse Practitioner Family; Orthopaedic Surgery; Physician Assistant
PROC: 0S9D3ZX Drainage of Left Knee Joint, Percutaneous Approach, Diagnostic (ICD-10-PCS; 2018-10-15)
PROC: 0SBD4ZZ Excision of Left Knee Joint, Percutaneous Endoscopic Approach (ICD-10-PCS; principal; 2018-10-19 10:30)
DX: M00.262 Other streptococcal arthritis, left knee (principal); N17.9 Acute kidney failure, unspecified; B95.4 Other streptococcus as the cause of diseases classified elsewhere; M94.262 Chondromalacia, left knee; I12.9 Hypertensive chronic kidney disease with stage 1 through stage 4 chronic kidney disease, or unspecified chronic kidney disease; N18.9 Chronic kidney disease, unspecified; E11.22 Type 2 diabetes mellitus with diabetic chronic kidney disease; E11.65 Type 2 diabetes mellitus with hyperglycemia; I48.0 Paroxysmal atrial fibrillation; E78.5 Hyperlipidemia, unspecified; Z79.01 Long term (current) use of anticoagulants; K59.00 Constipation, unspecified
CPT/HCPCS: 99223-AI; 99231-AI; 99232-AI; 99233-AI; A9284; C1751; J0171; J0696; J1100; J1170; J1815; J1885; J2405; J2704; J3010; J3370; J7030; J7050

== ENCOUNTER → 2018-11-14 | Outpatient (CLI) | payer MEDICARE, BC ==
[~2018-11-14] MED LIST changes: +NORCO 325 MG-7.1 TAB PO; +ULTRAM 50MG TAB50 MG PO
[2018-11-14 18:23] LABS: BASO # 0.1 (0.0-0.2); BASO % 0.6 % (0.0-2.0); EOS # 0.1 (0.0-0.7); GRAN # 7.5 (1.4-6.5); GRAN % 69.9 % (42.2-75.2); HEMATOCRIT 39.8 % (42.0-52.0); HEMOGLOBIN 12.6 g/dl (13.5-18.0); LYMPH # 1.8 (1.2-3.4); LYMPH % 16.9 % (20.0-51.0); MEAN CELL VOLUME 93 fl (80.0-100.0); MEAN CORPUSCULAR HEMOGLOBIN 29 pg (27.0-31.0); MEAN CORPUSCULAR HGB CONC 32 g/dl (33.0-37.0); MEAN PLATELET VOLUME 8.8 fl (7.4-10.4); MONO # 1.1 (0.1-0.6); MONO % 10.2 % (1.7-9.3); PLATELET COUNT 364 K/mm3 (130-400); RED BLOOD COUNT 4.28 M/mm3 (4.20-5.60); REDCELL DISTRIBUTION WIDTH-CV 15.2 % (11.5-14.5)
[2018-11-14 18:28] LABS: ALBUMIN 2.9 gm/dL (3.5-5.0); BILIRUBIN,TOTAL 0.4 mg/dL (0.0-1.0); CALCIUM 8.3 mg/dL (8.4-10.2); CREATININE, serum 1.59 mg/dL (0.66-1.25); POTASSIUM 4.3 mmol/L (3.4-5.0); TOTAL PROTEIN 6.7 gm/dL (6.4-8.2)
== END ==
LOC: ZCOL.LAB 18:17
PROVIDERS: Internal Medicine
DX: N17.9 Acute kidney failure, unspecified (principal); R78.81 Bacteremia

== ENCOUNTER 2018-11-21 11:39 | Emergency (ER) | payer MEDICARE, BC ==
[~2018-11-21] VITALS: Ht 180.3 cm; Wt 86.4 kg
[2018-11-21 11:52] VITALS: BP 109/68; TEMP 97.8
[2018-11-21 12:43] LABS: BASO % 0.5 % (0.0-2.0); EOS # 0.2 (0.0-0.7); EOS % 2.5 % (0-4.0); GRAN # 5.7 (1.4-6.5); GRAN % 70.9 % (42.2-75.2); HEMOGLOBIN 12.5 g/dl (13.5-18.0); LYMPH # 1.2 (1.2-3.4); LYMPH % 14.8 % (20.0-51.0); MEAN CELL VOLUME 92 fl (80.0-100.0); MEAN CORPUSCULAR HEMOGLOBIN 29 pg (27.0-31.0); MEAN CORPUSCULAR HGB CONC 31 g/dl (33.0-37.0); MEAN PLATELET VOLUME 8.7 fl (7.4-10.4); MONO # 0.9 (0.1-0.6); MONO % 10.9 % (1.7-9.3); PLATELET COUNT 310 K/mm3 (130-400); RED BLOOD COUNT 4.35 M/mm3 (4.20-5.60); REDCELL DISTRIBUTION WIDTH-CV 16.8 % (11.5-14.5)
[2018-11-21 12:49] LABS: ALANINE AMINOTRANSFERASE < 6 U/L (21-72); ALBUMIN 3.2 gm/dL (3.5-5.0); ALKALINE PHOSPHATASE 78 U/L (50-136); ANION GAP 8 mmol/L (7-16); AST,SGOT 19 U/L (15-37); BILIRUBIN,TOTAL 0.5 mg/dL (0.0-1.0); BLOOD UREA NITROGEN 17 mg/dL (9-20); CALCIUM 8.5 mg/dL (8.4-10.2); CARBON DIOXIDE 28 mmol/L (22-30); CHLORIDE 98 mmol/L (98-107); CREATININE, serum 1.16 (0.66-1.25); GLUCOSE 265 mg/dL (74-106); POTASSIUM 4.2 mmol/L (3.4-5.0); SODIUM 133 mmol/L (137-145); TOTAL PROTEIN 7.3 gm/dL (6.4-8.2)
[2018-11-21 13:05] LABS: ACETAMINOPHEN < 10 ug/mL (10-30); SALICYLATE < 1.0 mg/dL
[2018-11-21 13:37] LABS: COLLECTION METHOD CLEAN CATCH
[2018-11-21 13:56] LABS: MUCOUS Present /lpf; PH 5 (5-8); SQUAMOUS EPITHELIAL 0-2 /hpf; URINE APPEARANCE Clear; URINE BACTERIA None Seen /hpf; URINE BILIRUBIN Negative (NEGATIVE); URINE BLOOD 1+ (NEGATIVE); URINE COLOR Amber; URINE GLUCOSE 3+ (NEGATIVE); URINE KETONE Trace (NEGATIVE); URINE LEUKOCYTE ESTERASE 1+ (NEGATIVE); URINE NITRATE Negative (NEGATIVE); URINE PROTEIN(semi-quant) 2+ (NEGATIVE)
[2018-11-21 14:42] VITALS: PULSE 65
[2018-11-23] MEDS ORDERED: MIRALAX PA17 GM/Dose PO (12:02)
[2018-11-23] MEDS ORDERED: COLACE 100100 MG/CAP PO (12:03)
[2018-11-23] MEDS ORDERED: DAZIDOX10 MG PO ×2 (12:03→13:12)
[2018-11-23] MEDS ORDERED: GENTLE LAXATIVE10 MG RC (12:38)
[2018-11-23] MEDS ORDERED: CARDIZEM LA180 MG PO (12:38)
[2018-11-23] MEDS ORDERED: IMODIUM 2MG CAPS2 MG PO (12:42)
[2018-11-23] MEDS ORDERED: HEPARIN 100U100 U/M1 IV (12:42)
[2018-11-23] MEDS ORDERED: GOOD NEIGH1200 MG/15 PO (13:10)
[2018-11-23] MEDS ORDERED: MYLANTA 150 ML150 M1 PO (13:11)
[2018-11-23] MEDS ORDERED: PROTONIX20 MG PO (13:13)
[2018-11-23] MEDS ORDERED: CRESTOR5 MG PO (13:15)
[2018-11-23] MEDS ORDERED: ROCEPHIN 2GM VIAL21 IJ (13:15)
[2018-11-23] MEDS ORDERED: TYLENOL 325MG325 MG PO (13:16)
[2018-11-23] MEDS ORDERED: ZYVOX 600MG600 MG PO (13:17)
[2018-11-23] MEDS ORDERED: ZOFRAN 4MG T4 MG/TAB PO (13:17)
== END 2018-11-21 14:47 | disposition home or self-care (01) ==
LOC: COL.ER 11:39
PROVIDERS: Emergency Medicine
DX: R41.0 Disorientation, unspecified (principal); N39.0 Urinary tract infection, site not specified; I10 Essential (primary) hypertension; Z79.01 Long term (current) use of anticoagulants
CPT/HCPCS: J7030

== ENCOUNTER → 2018-12-01 | Outpatient (REF) ==
[~2018-12-01] MED LIST changes: +CARDIZEM LA180 MG PO; +CRESTOR5 MG PO; +DAZIDOX10 MG PO; +GENTLE LAXATIVE10 MG RC; +GOOD NEIGH1200 MG/15 PO; +HEPARIN 100U100 U/M1 IV; +IMODIUM 2MG CAPS2 MG PO; +MELAT3MGTAB PO; +MIRALAX PA17 GM/Dose PO; +MYLANTA 150 ML150 M1 PO; +PROBIOTIC ACID1 EAC3 PO; +PROTONIX20 MG PO; +ROCEPHIN 2GM VIAL21 IJ; +ROCEPHIN 2GM VIAL21 IV; +TYLENOL 325MG325 MG PO; +ZOFRAN 4MG T4 MG/TAB PO; +ZYVOX 600MG600 MG PO
== END ==
LOC: ZCOL.LAB 15:32
DX: Z01.89 Encounter for other specified special examinations (principal)

== ENCOUNTER → 2018-12-03 | Outpatient (REF) | LOC: ZCOL.LAB 08:41 | DX: Z01.89 Encounter for other specified special examinations (principal) ==

== ENCOUNTER 2019-08-25 13:00 | Outpatient (RCR) | payer MEDICARE | END 2019-08-27 | disposition still patient (30) | LOC: WSC | DX: M17.12 Unilateral primary osteoarthritis, left knee (principal); G54.1 Lumbosacral plexus disorders ==

== ENCOUNTER 2019-10-26 13:00 | Outpatient (RCR) | payer MEDICARE | END 2019-11-26 | disposition home or self-care (01) | LOC: WSPT | DX: M17.12 Unilateral primary osteoarthritis, left knee (principal); G54.8 Other nerve root and plexus disorders ==

== ENCOUNTER 2021-11-16 15:00 | Outpatient (RCR) | payer MEDICARE | END 2021-11-23 | disposition home or self-care (01) | LOC: WSPT | DX: G54.1 Lumbosacral plexus disorders (principal); G82.22 Paraplegia, incomplete ==